=== PATIENT | female | born 1980 | race Caucasian/White ===

== ENCOUNTER 2022-01-02 08:34 | Emergency (ER) | payer BC ==
[2022-01-02] MEDS ORDERED: Sodium Chloride 0.9% 2.5 ML Syringe FLUSH PRN (09:07)
[2022-01-02] MEDS ORDERED: Sodium Chloride 0.9% 10 ML Syringe FLUSH PRN (09:07)
[2022-01-02] MEDS ORDERED: Sodium Chloride 0.9% 1,000 ML IV ONE (09:07)
[2022-01-02] MEDS ORDERED: Ketorolac 30 MG/ML SDV IVPUSH ONE (09:07)
[2022-01-02] MEDS ORDERED: diphenhydrAMINE 50 MG/ML SDV IVPUSH ONE (09:07)
[2022-01-02] MEDS ORDERED: Ondansetron 4 MG/2 ML SDV IVPUSH ONE (09:07)
[2022-01-02 10:12] LABS: CARBON DIOXIDE,CO2 23.6 mmol/L (21.0-32.0); POTASSIUM,K 3.9 mmol/L (3.5-5.1)
== END 2022-01-02 10:40 | disposition home or self-care (01) ==
LOC: MW.ED 08:34
DX: G43.909 Migraine, unspecified, not intractable, without status migrainosus (principal); Z91.041 Radiographic dye allergy status; Z88.1 Allergy status to other antibiotic agents; Z79.899 Other long term (current) drug therapy
CPT/HCPCS: 36415; 80053; 85025; 96374; 96375; 99283; J1200; J1885; J2405; J3490; J7030

== ENCOUNTER 2022-01-21 23:14 | Emergency (ER) | payer BC ==
[2022-01-22 01:34] LABS: ACETAMINOPHEN <2.0 ug/mL; BLOOD UREA NITROGEN,BUN 7 mg/dL (7.0-18.0); CARBON DIOXIDE,CO2 18.1 mmol/L (21.0-32.0); CHLORIDE,CL 106 mmol/L (98-107); GLUCOSE RANDOM 94 mg/dL (74-106); POTASSIUM,K 3.3 mmol/L (3.5-5.1); SODIUM,NA 139 mmol/L (136-145)
== END 2022-01-22 10:34 | disposition home or self-care (01) ==
LOC: MW.ED 23:14
DX: R45.851 Suicidal ideations (principal); F32.9 Major depressive disorder, single episode, unspecified; Z79.899 Other long term (current) drug therapy; Z91.041 Radiographic dye allergy status; Z88.1 Allergy status to other antibiotic agents; Z20.822 Contact with and (suspected) exposure to COVID-19
CPT/HCPCS: 36415; 80053; 80143; 80179; 80305-QW; 80307; 81025; 83735; 84439; 84443; 85025; 93005; 99285-25; U0002

== ENCOUNTER 2022-02-14 01:57 | Emergency (ER) | payer BC ==
[2022-02-14] MEDS ORDERED: Prochlorperazine 10 MG/2 ML SDV IVPUSH ONE (02:56)
[2022-02-14] MEDS ORDERED: diphenhydrAMINE 50 MG/ML SDV IVPUSH ONE (02:56)
[2022-02-14] MEDS ORDERED: Ketorolac 30 MG/ML SDV IVPUSH STA (02:56)
[2022-02-14] MEDS ORDERED: Dextrose 5%-Lactated Ringers 1,000 ML IV SCH (03:00)
== END 2022-02-14 04:31 | disposition home or self-care (01) ==
LOC: MW.ED 01:57
DX: G43.909 Migraine, unspecified, not intractable, without status migrainosus (principal); Z88.1 Allergy status to other antibiotic agents; Z91.041 Radiographic dye allergy status
CPT/HCPCS: 96361; 96374; 96375; 99283-25; 99284; J0780; J1200; J1885; J7121

== ENCOUNTER 2022-02-14 14:28 | Emergency (ER) | payer BC ==
[2022-02-14] MEDS ORDERED: Acetaminophen/Butalbital/Caffeine 325-50-40 MG Tab PO ONE (15:10)
[2022-02-14] MEDS ORDERED: Ibuprofen 600 MG Tab PO ONE (15:10)
[2022-02-14] MEDS ORDERED: Sodium Chloride 0.9% 1,000 ML IV ONE (16:38)
[2022-02-14] MEDS ORDERED: diphenhydrAMINE 50 MG/ML SDV IVPUSH ONE (16:38)
[2022-02-14] MEDS ORDERED: Metoclopramide 10 MG/2 ML SDV IVPUSH ONE (16:38)
== END 2022-02-14 17:23 | disposition home or self-care (01) ==
LOC: MW.ED 14:28
DX: G43.909 Migraine, unspecified, not intractable, without status migrainosus (principal); Z79.899 Other long term (current) drug therapy; Z91.041 Radiographic dye allergy status; Z88.1 Allergy status to other antibiotic agents
CPT/HCPCS: 96374; 96375; 99283; A9270; J1200; J2765; J7030

== ENCOUNTER 2022-05-05 14:16 | Emergency (ER) | payer BC | END 2022-05-05 15:28 | disposition left against medical advice (07) | LOC: MW.ED 14:16 | DX: Z53.21 Procedure and treatment not carried out due to patient leaving prior to being seen by health care provider (principal) ==

== ENCOUNTER 2022-07-05 12:34 | Emergency (ER) | payer BC | END 2022-07-05 15:17 | disposition home or self-care (01) | LOC: MW.ED 12:34 | DX: S46.001A Unspecified injury of muscle(s) and tendon(s) of the rotator cuff of right shoulder, initial encounter (principal); Z88.1 Allergy status to other antibiotic agents; Z91.041 Radiographic dye allergy status; Z79.899 Other long term (current) drug therapy; W01.0XXA Fall on same level from slipping, tripping and stumbling without subsequent striking against object, initial encounter | CPT/HCPCS: 73030-26-RT; 73030-RT; 99283 ==

== ENCOUNTER 2022-09-01 16:23 | Emergency (ER) | payer BC ==
[2022-09-01] MEDS ORDERED: Sodium Chloride 0.9% 10 ML Syringe FLUSH PRN (18:10)
[2022-09-01] MEDS ORDERED: Sodium Chloride 0.9% 2.5 ML Syringe FLUSH PRN (18:10)
[2022-09-01] MEDS ORDERED: Sodium Chloride 0.9% 1,000 ML IV ONE (18:11)
[2022-09-01] MEDS ORDERED: Metoclopramide 10 MG/2 ML SDV IVPUSH ONE (18:11)
[2022-09-01] MEDS ORDERED: diphenhydrAMINE 50 MG/ML SDV IVPUSH ONE (18:11)
[2022-09-01] MEDS ORDERED: Ketorolac 30 MG/ML SDV IVPUSH ONE (18:11)
== END 2022-09-01 19:25 | disposition home or self-care (01) ==
LOC: MW.ED 16:23
DX: G43.909 Migraine, unspecified, not intractable, without status migrainosus (principal); T50.995A Adverse effect of other drugs, medicaments and biological substances, initial encounter; Z91.041 Radiographic dye allergy status; Z88.1 Allergy status to other antibiotic agents; Z79.899 Other long term (current) drug therapy
CPT/HCPCS: 96361; 96374; 96375; 99284; J1200; J1885; J2765; J3490; J7030

== ENCOUNTER 2022-11-11 07:31 | Day surgery (SDC) | payer BC ==
[~2022-11-11 07:31] MED LIST: Lactated Ringers 1,000 ML IV SCH
[2022-11-11] MEDS ORDERED: Propofol 200 MG/20 ML SDV ONE ×2 (09:08→09:47)
[2022-11-11] MEDS ORDERED: Lidocaine 2% 5 ML SDV ONE (09:09)
== END 2022-11-11 10:45 | disposition home or self-care (01) ==
LOC: MW.SDS 07:31
PROVIDERS: ATTEND Surgery
DX: T18.4XXA Foreign body in colon, initial encounter (principal); K62.89 Other specified diseases of anus and rectum; K64.8 Other hemorrhoids; F41.9 Anxiety disorder, unspecified; F32.A Depression, unspecified; F43.10 Post-traumatic stress disorder, unspecified; F17.290 Nicotine dependence, other tobacco product, uncomplicated; Z91.041 Radiographic dye allergy status; Z79.899 Other long term (current) drug therapy
CPT/HCPCS: 45379; 45380; 81025; J2704; J7120; J3490

== ENCOUNTER 2022-11-21 12:56 | Emergency (ER) | payer BC ==
[2022-11-21] MEDS ORDERED: Morphine 4 MG/ML Syringe IVPUSH ONE (13:01)
[2022-11-21] MEDS ORDERED: Sodium Chloride 0.9% 1,000 ML IV ONE (13:01)
[2022-11-21] MEDS ORDERED: Ondansetron 4 MG/2 ML SDV IVPUSH ONE (13:01)
[2022-11-21] MEDS ORDERED: Hydrocortisone Sodium Succinate 100 MG/2 ML SDV IVPUSH ONE (13:11)
[2022-11-21] MEDS ORDERED: diphenhydrAMINE 50 MG/ML SDV IVPUSH ONE (13:11)
[2022-11-21 14:05] LABS: CARBON DIOXIDE,CO2 26.3 mmol/L (21.0-32.0); POTASSIUM,K 4.3 mmol/L (3.5-5.1)
[2022-11-21] MEDS ORDERED: Iopamidol 755 MG/ML 500 ML Multipack Bottle IVPUSH ONE (15:22)
== END 2022-11-21 17:01 | disposition home or self-care (01) ==
LOC: MW.ED 12:56
DX: K80.20 Calculus of gallbladder without cholecystitis without obstruction (principal); Z88.1 Allergy status to other antibiotic agents; Z91.041 Radiographic dye allergy status; Z79.899 Other long term (current) drug therapy
CPT/HCPCS: 36415; 71045; 71275; 74177; 80053; 83735; 84484; 85025; 85610; 85730; 93005; 96361; 96374; 96375; 99285; J1200; J1720; J2270; J2405; J7030; Q9967; 93010; 99284

== ENCOUNTER 2022-12-24 17:11 | Emergency (ER) | payer BC ==
[2022-12-24] MEDS ORDERED: Sodium Chloride 0.9% 1,000 ML IV STA (18:04)
[2022-12-24] MEDS ORDERED: Sodium Chloride 0.9% 2.5 ML Syringe FLUSH PRN (18:04)
[2022-12-24] MEDS ORDERED: Sodium Chloride 0.9% 10 ML Syringe FLUSH PRN (18:04)
[2022-12-24 19:34] LABS: CARBON DIOXIDE,CO2 20.5 mmol/L (21.0-32.0); POTASSIUM,K 3.3 mmol/L (3.5-5.1)
== END 2022-12-24 20:52 | disposition home or self-care (01) ==
LOC: MW.ED 17:11
DX: K62.5 Hemorrhage of anus and rectum (principal); F17.210 Nicotine dependence, cigarettes, uncomplicated; Z91.041 Radiographic dye allergy status; Z88.1 Allergy status to other antibiotic agents
CPT/HCPCS: 36415; 80053; 81001; 81025; 83690; 83735; 85025; 85610; 96360; 99284; J3490; J7030; 99283

== ENCOUNTER 2023-05-21 11:13 | Emergency (ER) | payer BC ==
[2023-05-21] MEDS ORDERED: Sodium Chloride 0.9% 1,000 ML IV ONE (12:01)
[2023-05-21] MEDS ORDERED: Sodium Chloride 0.9% 10 ML Syringe FLUSH PRN (12:01)
[2023-05-21] MEDS ORDERED: Ondansetron 4 MG/2 ML SDV IVPUSH ONE (12:01)
[2023-05-21] MEDS ORDERED: Sodium Chloride 0.9% 2.5 ML Syringe FLUSH PRN (12:01)
[2023-05-21] MEDS ORDERED: Ketorolac 30 MG/ML SDV IVPUSH ONE (12:08)
[2023-05-21 12:32] LABS: BASOPHILS ABSOLUTE AUTO 0.1 K/uL (0.0-0.1); BASOPHILS PERCENT AUTO 0.7 % (0.0-1.5); EOSINOPHILS ABSOLUTE AUTO 0.1 K/uL (0.0-0.7); EOSINOPHILS PERCENT AUTO 1.1 % (0.0-7.0); HEMATOCRIT 44.4 % (36.0-46.0); HEMOGLOBIN 14.8 g/dL (12.0-16.0); LYMPHOCYTES ABSOLUTE AUTO 1.2 K/uL (0.6-2.4); MEAN CORPUSCULAR HEMOGLOBIN 31.6 pg (27.0-32.0); MEAN CORPUSCULAR HGB CONC 33.3 g/dL (31.0-37.0); MEAN CORPUSCULAR VOLUME 94.9 fL (80.0-98.0); MONOCYTES ABSOLUTE AUTO 0.4 K/uL (0.0-0.8); MONOCYTES PERCENT AUTO 5.5 % (0.0-15.0); NEUTROPHILS ABSOLUTE AUTO 5.5 K/uL (1.4-5.7); NEUTROPHILS PERCENT AUTO 75.7 % (48.0-80.0); NRBC ABSOLUTE 0 K/uL; PLATELET COUNT,PLT 246 K/uL (150-400); RED BLOOD CELL COUNT 4.68 M/uL (4.30-5.90); WHITE BLOOD CELL COUNT,WBC 7.22 K/uL (4.0-11.0)
[2023-05-21 12:55] LABS: ALBUMIN 3.3 g/dL (3.4-5.0); BILIRUBIN TOTAL 0.2 mg/dL (0.2-1.0); CALCIUM 7.8 mg/dL (8.5-10.1); CARBON DIOXIDE,CO2 24.1 mmol/L (21.0-32.0); CREATININE 1.1 mg/dL (0.6-1.0); EST CRCL DRUG DOSING (CG) 56.36 mL/min; POTASSIUM,K 4.1 mmol/L (3.5-5.1); PROTEIN TOTAL,TP 6.5 g/dL (6.4-8.2)
[2023-05-21 13:08] LABS: BILIRUBIN,URINE NEGATIVE (NEGATIVE); COLOR,URINE YELLOW; GLUCOSE,URINE NEGATIVE (NEGATIVE); KETONES,URINE NEGATIVE (NEGATIVE); LEUKOCYTE ESTERASE,URINE TRACE (NEGATIVE); NITRITE,URINE NEGATIVE (NEGATIVE); OCCULT BLOOD,URINE NEGATIVE (NEGATIVE); PH,URINE 8.5 (5.0-8.0); PROTEIN,URINE TRACE mg/dL (NEGATIVE); UROBILINOGEN,URINE 0.2 EU/dL (<2.0)
[2023-05-21 13:14] LABS: LACTIC ACID 0.6 mmol/L (0.4-2.0)
[2023-05-21 13:14] LABS: APPEARANCE,URINE SLT CLOUDY; EPITHELIAL CELLS,URINE FEW (NONE-FEW); RBC,URINE 0-2 (0-2/HPF)
[2023-05-21 13:15] LABS: BACTERIA,URINE 2+ (NEGATIVE); MUCUS,URINE LIGHT (NONE-MOD)
[2023-05-21] MEDS ORDERED: cefTRIAXone 2 GM in Sodium Chloride 0.9% 50 ML IV ONE (14:08)
== END 2023-05-21 15:39 | disposition home or self-care (01) ==
LOC: MW.ED 11:13
DX: N12 Tubulo-interstitial nephritis, not specified as acute or chronic (principal); Z79.899 Other long term (current) drug therapy; Z88.1 Allergy status to other antibiotic agents; Z91.041 Radiographic dye allergy status
CPT/HCPCS: 36415; 74176; 80053; 81001; 83605; 83690; 84703; 85025; 96361; 96365; 96375; 99284; J0696; J1885; J2405; J3490; J7030

== ENCOUNTER 2023-05-24 15:38 | Emergency (ER) | payer BC ==
[2023-05-24] MEDS ORDERED: Ketorolac 30 MG/ML SDV IVPUSH ONE (16:19)
[2023-05-24] MEDS ORDERED: Sodium Chloride 0.9% 1,000 ML IV ONE (16:19)
[2023-05-24 16:53] LABS: BASOPHILS PERCENT AUTO 0.6 % (0.0-1.5); EOSINOPHILS ABSOLUTE AUTO 0.1 K/uL (0.0-0.7); EOSINOPHILS PERCENT AUTO 1.9 % (0.0-7.0); HEMOGLOBIN 15.3 g/dL (12.0-16.0); LYMPHOCYTES ABSOLUTE AUTO 1.5 K/uL (0.6-2.4); LYMPHOCYTES PERCENT AUTO 23.3 % (16.0-40.0); MEAN CORPUSCULAR HEMOGLOBIN 31.2 pg (27.0-32.0); MEAN CORPUSCULAR HGB CONC 33.3 g/dL (31.0-37.0); MEAN CORPUSCULAR VOLUME 93.9 fL (80.0-98.0); MONOCYTES ABSOLUTE AUTO 0.5 K/uL (0.0-0.8); MONOCYTES PERCENT AUTO 7.7 % (0.0-15.0); NEUTROPHILS ABSOLUTE AUTO 4.2 K/uL (1.4-5.7); NEUTROPHILS PERCENT AUTO 66.5 % (48.0-80.0); NRBC ABSOLUTE 0 K/uL; PLATELET COUNT,PLT 238 K/uL (150-400); WHITE BLOOD CELL COUNT,WBC 6.36 K/uL (4.0-11.0)
[2023-05-24 17:45] LABS: ALBUMIN 3.4 g/dL (3.4-5.0); BILIRUBIN TOTAL 0.2 mg/dL (0.2-1.0); CALCIUM 8.4 mg/dL (8.5-10.1); CREATININE 1.1 mg/dL (0.6-1.0); EST CRCL DRUG DOSING (CG) 56.36 mL/min; POTASSIUM,K 3.8 mmol/L (3.5-5.1); PROTEIN TOTAL,TP 6.7 g/dL (6.4-8.2)
[2023-05-24 17:49] LABS: LACTIC ACID 0.7 mmol/L (0.4-2.0)
[2023-05-24 18:04] LABS: APPEARANCE,URINE CLEAR; BILIRUBIN,URINE NEGATIVE (NEGATIVE); COLOR,URINE YELLOW; GLUCOSE,URINE NEGATIVE (NEGATIVE); KETONES,URINE NEGATIVE (NEGATIVE); LEUKOCYTE ESTERASE,URINE NEGATIVE (NEGATIVE); NITRITE,URINE NEGATIVE (NEGATIVE); OCCULT BLOOD,URINE NEGATIVE (NEGATIVE); PH,URINE 8.5 (5.0-8.0); PROTEIN,URINE NEGATIVE (NEGATIVE); UROBILINOGEN,URINE 0.2 EU/dL (<2.0)
== END 2023-05-24 18:43 | disposition home or self-care (01) ==
LOC: MW.ED 15:38
DX: R10.9 Unspecified abdominal pain (principal); Z20.822 Contact with and (suspected) exposure to COVID-19; Z79.899 Other long term (current) drug therapy; Z88.1 Allergy status to other antibiotic agents; Z91.041 Radiographic dye allergy status
CPT/HCPCS: 36415; 80053; 81003; 83605; 85025; 87040; 87635; 96361; 96374; 99283; J1885; J7030; 99284; U0002

== ENCOUNTER 2024-01-22 19:33 | Emergency (ER) | payer BC ==
[2024-01-22] MEDS: Sodium Chloride 0.9% 1,000 ML IV ONE (19:59)
[2024-01-22] MEDS: Sodium Chloride 0.9% 10 ML Syringe FLUSH PRN (19:59)
[2024-01-22] MEDS: Ondansetron 4 MG/2 ML SDV IVPUSH ONE (19:59)
[2024-01-22] MEDS: Sodium Chloride 0.9% 2.5 ML Syringe FLUSH PRN (19:59)
[2024-01-22 20:24] LABS: BASOPHILS ABSOLUTE AUTO 0.06 K/uL (0.00-0.20); BASOPHILS PERCENT AUTO 0.8 % (0.0-1.0); EOSINOPHILS ABSOLUTE AUTO 0.09 K/uL (0.00-0.45); EOSINOPHILS PERCENT AUTO 1.1 % (0.0-6.0); HEMATOCRIT 43.3 % (37.0-47.0); HEMOGLOBIN 14.9 g/dL (12.0-16.0); IMMATURE GRAN ABSOLUTE AUTO 0.02 K/uL (0.00-0.05); IMMATURE GRAN PERCENT AUTO 0.3 % (0.0-0.4); LYMPHOCYTES ABSOLUTE AUTO 1.44 K/uL (1.00-4.80); LYMPHOCYTES PERCENT AUTO 18.2 % (24.0-44.0); MEAN CORPUSCULAR HEMOGLOBIN 32.1 pg (28.0-32.0); MEAN CORPUSCULAR HGB CONC 34.4 g/dL (32.0-36.0); MEAN CORPUSCULAR VOLUME 93.3 fL (83.0-99.0); MEAN PLATELET VOLUME 10.3 fL (9.4-12.3); MONOCYTES ABSOLUTE AUTO 0.42 K/uL (0.00-0.80); MONOCYTES PERCENT AUTO 5.3 % (0.0-8.0); NEUTROPHILS ABSOLUTE AUTO 5.87 K/uL (1.80-7.70); NEUTROPHILS PERCENT AUTO 74.3 % (41.0-71.0); PLATELET COUNT,PLT 283 K/uL (150-400); RED BLOOD CELL COUNT 4.64 M/uL (4.10-5.30)
[2024-01-22 20:45] LABS: A/G RATIO 1.1 (0.9-1.6); ALBUMIN 3.5 g/dL (3.4-5.0); BILIRUBIN TOTAL 0.3 mg/dL (0.2-1.0); CARBON DIOXIDE,CO2 21.6 mmol/L (21.0-32.0); CREATININE 0.9 mg/dL (0.6-1.0); EST CRCL DRUG DOSING (CG) 65.3 mL/min; POTASSIUM,K 4.1 mmol/L (3.5-5.1); PROTEIN TOTAL,TP 6.6 g/dL (6.4-8.2)
== END 2024-01-22 22:10 | disposition left against medical advice (07) ==
LOC: MW.ED 19:33
DX: R10.84 Generalized abdominal pain (principal); R11.2 Nausea with vomiting, unspecified; Z90.49 Acquired absence of other specified parts of digestive tract; Z88.1 Allergy status to other antibiotic agents; Z91.041 Radiographic dye allergy status; Z79.2 Long term (current) use of antibiotics; Z79.899 Other long term (current) drug therapy
CPT/HCPCS: 36415; 80053; 81025; 83690; 84484; 85025; 93005; 96361; 96374; 99284; J2405; J3490; J7030; 93010

== ENCOUNTER 2024-10-05 15:10 | Emergency (ER) | payer BC ==
[2024-10-05] MEDS: Sodium Chloride 0.9% 1,000 ML IV ONE (18:01)
[2024-10-05] MEDS: LORazepam 2 MG/ML SDV IVPUSH ONE (18:02)
[2024-10-05] MEDS: Ondansetron 4 MG/2 ML SDV IVPUSH ONE (18:02)
[2024-10-05] MEDS: Ketorolac 30 MG/ML SDV IVPUSH ONE (18:02)
== END 2024-10-05 19:11 | disposition home or self-care (01) ==
LOC: MW.ED 15:10
DX: G43.909 Migraine, unspecified, not intractable, without status migrainosus (principal); Z90.49 Acquired absence of other specified parts of digestive tract; Z88.8 Allergy status to other drugs, medicaments and biological substances; Z91.041 Radiographic dye allergy status; Z79.899 Other long term (current) drug therapy; Z75.8 Other problems related to medical facilities and other health care
CPT/HCPCS: 96361; 96374; 96375; 99283; J1885; J2060; J2405; J7030

== ENCOUNTER 2024-11-03 10:24 | Emergency (ER) | payer BC ==
[2024-11-03] MEDS ORDERED: Sodium Chloride 0.9% 10 ML Syringe FLUSH PRN (11:02)
[2024-11-03] MEDS: Sodium Chloride 0.9% 1,000 ML IV SCH (11:25)
[2024-11-03] MEDS: Aspirin 81 MG Tab.Chew PO ONE (11:25)
[2024-11-03 11:31] LABS: BASOPHILS ABSOLUTE AUTO 0.08 K/uL (0.00-0.20); BASOPHILS PERCENT AUTO 1.2 % (0.0-1.0); EOSINOPHILS ABSOLUTE AUTO 0.21 K/uL (0.00-0.45); EOSINOPHILS PERCENT AUTO 3.2 % (0.0-6.0); HEMATOCRIT 42.1 % (37.0-47.0); HEMOGLOBIN 14.5 g/dL (12.0-16.0); IMMATURE GRAN ABSOLUTE AUTO 0.02 K/uL (0.00-0.05); IMMATURE GRAN PERCENT AUTO 0.3 % (0.0-0.4); LYMPHOCYTES PERCENT AUTO 26.2 % (24.0-44.0); MEAN CORPUSCULAR HEMOGLOBIN 31.3 pg (28.0-32.0); MEAN CORPUSCULAR HGB CONC 34.4 g/dL (32.0-36.0); MEAN CORPUSCULAR VOLUME 90.9 fL (83.0-99.0); MEAN PLATELET VOLUME 9.8 fL (9.4-12.3); MONOCYTES ABSOLUTE AUTO 0.44 K/uL (0.00-0.80); MONOCYTES PERCENT AUTO 6.8 % (0.0-8.0); NEUTROPHILS ABSOLUTE AUTO 4.05 K/uL (1.80-7.70); NEUTROPHILS PERCENT AUTO 62.3 % (41.0-71.0); PLATELET COUNT,PLT 320 K/uL (150-400); RED BLOOD CELL COUNT 4.63 M/uL (4.10-5.30)
[2024-11-03 11:56] LABS: A/G RATIO 0.8 (0.9-1.6); ALANINE AMINOTRANSFERASE,ALT 17 IU/L (14-63); ALKALINE PHOSPHATASE 52 U/L (46-116); ASPARTATE AMNIOTRANSFERASE,AST 14 IU/L (15-37); BILIRUBIN TOTAL 0.2 mg/dL (0.2-1.0); BLOOD UREA NITROGEN,BUN 8 mg/dL (7.0-18.0); CALCIUM 8.7 mg/dL (8.5-10.1); CARBON DIOXIDE,CO2 20.7 mmol/L (21.0-32.0); CHLORIDE,CL 105 mmol/L (98-107); CREATININE 1.1 mg/dL (0.6-1.0); GLUCOSE RANDOM 100 mg/dL (74-106); MAGNESIUM 1.9 mg/dL (1.8-2.4); POTASSIUM,K 3.8 mmol/L (3.5-5.1); PROTEIN TOTAL,TP 6.6 g/dL (6.4-8.2); SODIUM,NA 140 mmol/L (136-145)
[2024-11-03 11:59] LABS: ESTIMATED GFR 63 mL/min (>60)
[2024-11-03] MEDS: Ketorolac 30 MG/ML SDV IVPUSH ONE (13:31)
== END 2024-11-03 14:57 | disposition home or self-care (01) ==
LOC: MW.ED 10:24
DX: R07.89 Other chest pain (principal); Z90.49 Acquired absence of other specified parts of digestive tract; Z88.8 Allergy status to other drugs, medicaments and biological substances; Z91.041 Radiographic dye allergy status; Z79.899 Other long term (current) drug therapy
CPT/HCPCS: 36415; 71045; 80053; 83735; 84484; 85025; 93005; 96361; 96374; 99285; A9270; J1885; J7030

== ENCOUNTER 2025-01-19 09:03 | Emergency (ER) | payer BC ==
[2025-01-19] MEDS: Prochlorperazine 10 MG/2 ML SDV IVPUSH ONE (09:27)
[2025-01-19] MEDS: diphenhydrAMINE 50 MG/ML SDV IVPUSH ONE (09:27)
[2025-01-19] MEDS: Sodium Chloride 0.9% 1,000 ML IV ONE (09:27)
[2025-01-19] MEDS: Ketorolac 30 MG/ML SDV IVPUSH ONE (09:27)
[2025-01-19 09:30] LABS: BASOPHILS ABSOLUTE AUTO 0.07 K/uL (0.00-0.20); BASOPHILS PERCENT AUTO 0.8 % (0.0-1.0); EOSINOPHILS ABSOLUTE AUTO 0.12 K/uL (0.00-0.45); EOSINOPHILS PERCENT AUTO 1.4 % (0.0-6.0); HEMATOCRIT 44.3 % (37.0-47.0); HEMOGLOBIN 15.3 g/dL (12.0-16.0); IMMATURE GRAN ABSOLUTE AUTO 0.02 K/uL (0.00-0.05); IMMATURE GRAN PERCENT AUTO 0.2 % (0.0-0.4); LYMPHOCYTES ABSOLUTE AUTO 1.66 K/uL (1.00-4.80); MEAN CORPUSCULAR HEMOGLOBIN 31.5 pg (28.0-32.0); MEAN CORPUSCULAR HGB CONC 34.5 g/dL (32.0-36.0); MEAN CORPUSCULAR VOLUME 91.2 fL (83.0-99.0); MEAN PLATELET VOLUME 9.8 fL (9.4-12.3); MONOCYTES ABSOLUTE AUTO 0.39 K/uL (0.00-0.80); MONOCYTES PERCENT AUTO 4.7 % (0.0-8.0); NEUTROPHILS ABSOLUTE AUTO 6.03 K/uL (1.80-7.70); NEUTROPHILS PERCENT AUTO 72.9 % (41.0-71.0); PLATELET COUNT,PLT 372 K/uL (150-400); RED BLOOD CELL COUNT 4.86 M/uL (4.10-5.30); WHITE BLOOD CELL COUNT,WBC 8.29 K/uL (3.9-11.3)
[2025-01-19 09:58] LABS: A/G RATIO 0.9 (0.9-1.6); ALBUMIN 3.4 g/dL (3.4-5.0); BILIRUBIN TOTAL 0.4 mg/dL (0.2-1.0); CALCIUM 8.6 mg/dL (8.5-10.1); CARBON DIOXIDE,CO2 20.1 mmol/L (21.0-32.0); CREATININE 1.1 mg/dL (0.6-1.0); EST CRCL DRUG DOSING (CG) 52.86 mL/min; MAGNESIUM 1.8 mg/dL (1.8-2.4); POTASSIUM,K 3.2 mmol/L (3.5-5.1)
== END 2025-01-19 10:45 | disposition home or self-care (01) ==
LOC: MW.ED 09:03
DX: G43.909 Migraine, unspecified, not intractable, without status migrainosus (principal); E78.00 Pure hypercholesterolemia, unspecified; Z79.899 Other long term (current) drug therapy; Z91.041 Radiographic dye allergy status; Z88.1 Allergy status to other antibiotic agents
CPT/HCPCS: 36415; 80053; 83735; 84703; 85025; 96361; 96374; 96375; 99283; J0780; J1200; J1885; J7030